=== PATIENT | female | born 1960 | race Caucasian/White ===

== ENCOUNTER 2017-03-31 12:31 | Emergency (ER) | payer OTHER ==
--- NOTE | 2017-03-31 15:19 | EDM.PDOC ---
ED HPI GENERAL MEDICAL PROBLEM - General Chief Complaint: Skin Complaint Stated Complaint: POISON MAGGIE Time Seen by Provider: 03/31/17 14:52 Source of Information: Reports: Patient, RN Notes Reviewed History Limitations: Reports: No Limitations - History of Present Illness INITIAL COMMENTS - FREE TEXT/NARRATIVE: 56-year-old female presents emergency department day with poison maggie exposure she was exposed to days prior she has it spread on both arms she has on her neck as well as her ankles - Related Data Allergies Allergy/AdvReac Type Severity Reaction Status Date / Time Penicillins Allergy Anaphylactic Verified 03/31/17 15:02 Shock tramadol Allergy Itching Verified 03/31/17 15:02 Home Meds: Home Meds Loratadine [Claritin] 1 tab PO DAILY 03/31/17 [History] Omeprazole 1 tab PO DAILY 03/31/17 [History] Past Medical History HEENT History: Reports: Other (See Below) Other HEENT History: sinus polyps removed, stapes prostesis 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: - Past Surgical History GI Surgical History: Reports: Appendectomy, Cholecystectomy Female Surgical History: Reports: Hysterectomy Musculoskeletal Surgical History: Reports: Knee Replacement Other Musculoskeletal Surgeries/Procedures:: left knee replacement Social & Family History - Tobacco Use Smoking Status *Q: Never Smoker - Caffeine Use Caffeine Use: Reports: Coffee, Soda - Recreational Drug Use Recreational Drug Use: No ED ROS GENERAL - Review of Systems Review Of Systems: See Below Constitutional: Reports: No Symptoms Skin: Reports: Rash ED EXAM, SKIN/RASH Exam: See Below Text/Narrative:: Examination integument system there are multiple linear streaks with vesicles forearms bilaterally neck and ankles bilaterally Exam Limited By: No Limitations General Appearance: Alert, WD/WN, No Apparent Distress Respiratory/Chest: No Respiratory Distress Course - Vital Signs Last Recorded V/S: Last Vital Signs Temp 97.5 F 03/31/17 15:10 Pulse 91 03/31/17 15:10 Resp 18 03/31/17 14:54 BP 161/82 H 03/31/17 15:10 Pulse Ox 98 03/31/17 15:10 Departure - Departure Time of Disposition: 15:21 Disposition: Home, Self-Care 01 Condition: Good Clinical Impression: Poison maggie - Discharge Information Forms: ED Department Discharge Additional Instructions: Take full course of steroids, Please followup with your primary care provider in 7-10 days if not better, please call return to the emergency department with worsening of symptoms. - Assessment/Plan Plan: Assessment Acuity = acute Site and laterality = contact dermatitis Etiology = poison maggie Manifestations = pruritus Location of injury = Home Lab values = none Plan Burst dose of steroids for 14 days follow-up primary care 7-10 days if no improvement no patient contact 14 days Patient was in agreement with the plan all questions were answered, they were instructed to return to the emergency department or call for worsening symptoms. This note was dictated using [employer] voice recognition software please call with any questions.
== END 2017-03-31 15:34 | disposition home or self-care (01) ==
LOC: JP.ED 12:31 → MERGE 12:31 → JP.ED 15:34
DX: L23.7 Allergic contact dermatitis due to plants, except food (principal); Z88.0 Allergy status to penicillin; Z88.8 Allergy status to other drugs, medicaments and biological substances; Z79.899 Other long term (current) drug therapy; Z90.49 Acquired absence of other specified parts of digestive tract; Z98.890 Other specified postprocedural states; Z90.710 Acquired absence of both cervix and uterus; Z96.659 Presence of unspecified artificial knee joint
CPT/HCPCS: 99283

== ENCOUNTER 2022-12-12 14:45 | Emergency (ER) | payer OTHER ==
[2022-12-12] MEDS ORDERED: Sodium Chloride 0.9% 10 ML Syringe FLUSH PRN (15:18)
[2022-12-12] MEDS ORDERED: Aspirin 81 MG Tab.Chew PO ONE (15:33)
[2022-12-12] MEDS ORDERED: methylPREDNISolone Sodium Succinate 125 MG/2 ML SDV IVPUSH ONE (15:39)
[2022-12-12] MEDS ORDERED: diphenhydrAMINE 50 MG/ML SDV IVPUSH ONE (15:39)
[2022-12-12] MEDS ORDERED: Sodium Chloride 0.9% 10 ML SDV FLUSH ONE (15:43)
[2022-12-12] MEDS ORDERED: Sodium Chloride 0.9% 100 ML IV SCH (15:45)
[2022-12-12] MEDS ORDERED: Iopamidol 755 Mg/ML 100 ML Bottle IV SCH (15:45)
[2022-12-12 16:01] LABS: ESTIMATED GFR 99 mL/min (>60); TROPONIN I HIGH SENSITIVITY 5.5 pg/mL (<=60.3)
[2022-12-12] MEDS ORDERED: Doxycycline 100 MG Cap PO ONE (17:35)
== END 2022-12-12 20:19 | disposition home or self-care (01) ==
LOC: JP.ED 14:45
DX: J18.9 Pneumonia, unspecified organism (principal); I12.9 Hypertensive chronic kidney disease with stage 1 through stage 4 chronic kidney disease, or unspecified chronic kidney disease; N18.9 Chronic kidney disease, unspecified; K21.9 Gastro-esophageal reflux disease without esophagitis; Z91.041 Radiographic dye allergy status; Z88.5 Allergy status to narcotic agent; Z88.0 Allergy status to penicillin; Z79.899 Other long term (current) drug therapy; Z90.49 Acquired absence of other specified parts of digestive tract
CPT/HCPCS: 36415; 71275; 80053; 83880; 84484; 85025; 87635; 93005; 96374; 96375; 99285; A9270; J1200; J2930; J3490; Q9967; 93010; 99284; U0002